=== PATIENT | male | born 1995 | race African-American/Black ===

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

== ENCOUNTER 2017-12-09 10:28 | Emergency (ER) | payer OTHER | END 2017-12-09 11:13 | disposition home or self-care (01) | LOC: M ED 10:28 | DX: M25.512 Pain in left shoulder (principal); T50.B15A Adverse effect of smallpox vaccines, initial encounter; X58.XXXA Exposure to other specified factors, initial encounter; Y92.89 Other specified places as the place of occurrence of the external cause | CPT/HCPCS: 99282 ==